=== PATIENT | female | born 1995 | race Caucasian/White ===

== ENCOUNTER 2017-06-04 16:15 | Emergency (ER) | payer MEDICAID ==
[~2017-06-04] VITALS: Ht 157.5 cm; Wt 48.5 kg
--- NOTE | ~2017-06-04 | CT99 ---
[facility] A Service of [facility] & [facility] RADIOLOGY TEXT RESULTS PATIENT: CHIDI MORALES LOCATION: [facility] : [birth year] UNIT #: [id number] AGE: [address]: Yamilet Lara MD SEX: F ORDER DR: [id number] [facility] [address] [place], [place] [address] [id number] MR#: [id number] Acc #: [id number] NAME: CHIDI MORALES. : 1995 SEX: F STUDY DATE/TIME: 06/04/2017 19:51 UNIT: [facility] ROOM: STUDY DESCRIPTION: CT Maxillofacial Area W Cont Attending Physician: Yamilet Lara M.D. Ordering Physician: Yamilet Lara M.D. Primary Care Physician: Chance Toney Aprn MEDICAL IMAGING REPORT This report is preliminary unless electronic signature is present EXAM CT maxillofacial area with contrast HISTORY Facial swelling more to the left side for three days, worsening, with nausea, vomiting and dizziness. Depression, anxiety and pain. COMMENT CT of the face performed in the axial plane during the intravenous administration of 100 mL Isovue-370. This CT exam was performed with one or more of the following radiation dose reduction techniques: automatic exposure control, adjustment of mA and/or kV according to patient size, and iterative reconstruction. This was followed by sagittal and coronal reformatted images. COMPARISON No comparison. FINDINGS There is partial opacification of left anterior ethmoid air cells and a small mucus retention cyst or polyp in a left sphenoid sinus, but there is no sinus air fluid level and the mastoid air cells are clear. There is dental metal and this results in some streak artifact. There is a sclerotic lesion seen associated with the root of right premolar tooth. It is about a centimeter in dimension and could be a dental associated lesion such as a cemento-ossifying fibroma or cementoma or other odontogenic lesion. I would recommend referral to Oral Maxillofacial Surgery for further evaluation. It has a particularly sclerotic central portion. There is some focal soft tissue swelling along the left side bridge of the nose, which has a small amount of heterogeneous low attenuation with a STS. [facility] A Service of [facility] RADIOLOGY TEXT RESULTS PATIENT: CHIDI MORALES LOCATION: [facility] : [birth year] UNIT #: [id number] AGE: [address]: Yamilet Lara MD SEX: F ORDER DR: central higher attenuation area. This measures up to about 7 mm in dimension and could be site of infection. Please correlate for clinical evidence of a skin lesion versus some cellulitic change. No trauma history is provided. There is no adjacent fracture. The globes are intact. The lenses are located. The patient has some asymmetric soft tissue swelling in the left cheek, again, possibly some cellulitic change in the absence of trauma history. There is no retrobulbar pathology appreciated. Some prominent submandibular nodes are seen left greater than right. They are probably reactive, but follow up is recommended to ensure that they resolve clinically. No bone destruction is appreciated. There is also a lucent area, which is probably fluid adjacent to the left anterior paramedian maxilla. It is about 1.4 x 0.7 x 1.4 cm dimension and it is concerning for a small abscess. I believe there is some overlying soft tissue swelling, but please correlate with physical exam findings. In this location it is typically dental in origin. It is in close proximity to the root of the midline left maxillary incisor tooth and it is possible that this is a source of infection with some at least thinning of the overlying cortex. I would recommend dental evaluation. IMPRESSION 1. There is concern for a rim-enhancing fluid collection seen left paramedian anterior to the maxilla, which measures about 1.4 x 0.7 x 1.4 cm dimension. It is intimately associated with the root of the midline left maxillary incisor tooth and it could be a dental abscess, which is involving the soft tissue. There does appear to be some soft tissue swelling and stranding and please correlate for clinical evidence for cellulitis in the region of abscess formation. Correlation with dental evaluation is recommended. Additionally, there is a smaller probable abscess along the left side bridge of the nose closer to the medial orbit that is about 7 mm in largest dimension, but I believe there is also cellulitic change in the left cheek. There is soft tissue stranding in this location with some swelling and no trauma history. Please correlate with findings on physical exam. 2. There is a sclerotic lesion associated with right maxillary premolar tooth up to about a centimeter dimension, which is nonspecific and in the differential would be an odontogenic lesion such as lesion such as a cemento-ossifying fibroma or cementoma. This area should also be evaluated by dental/oral maxillofacial surgery. This is probably unrelated to the current presentation of left-sided facial swelling. STAT * RESULT [facility]. [facility] A Service of [facility] & [facility] RADIOLOGY TEXT RESULTS PATIENT: CHIDI MORALES LOCATION: [facility] #: [id number] : [birth year] UNIT #: [id number] AGE: [address]: Yamilet Lara MD SEX: F ORDER DR: Dictated by... Stacy Hays M.D. THIS IS AN ELECTRONICALLY VERIFIED REPORT Stacy Hays M.D. at 06/05/2017 10:56 AM SAC/to TD: 06/04/2017 21:13 JOB #: [id number] MEDICAL IMAGING REPORT Page 1 of 1 COPY
[~2017-06-04 16:15] MED LIST: ADVAIR 100-501 EACH IH; ALBUTEROL17 GM INH; FLEXERIL10 MG PO; MOTRIN600 M1 PO; NAPROSYN500 MG PO; NO MEDICATIONS; SEROQUEL PO; SINGULAIR PO; TENEX1 MG; ZYRTEC-D TABLE1 EACH PO
[2017-06-04 16:35] LABS: URINE SOURCE CLEAN CATCH
[2017-06-04 16:40] LABS: BASOPHIL% 0.3 % (0-2.5); EOSINOPHIL# 0.1 X10e3 (0-0.7); EOSINOPHIL% 0.8 % (0.0-7.0); HEMATOCRIT 43.2 % (35.0-45.0); HEMOGLOBIN 15.1 gm/dL (12.0-16.0); LYMPHOCYTE# 1.3 X10e3 (1.0-3.5); LYMPHOCYTE% 15.3 % (17.0-45.0); MEAN CELL VOLUME 82.6 FL (83-96); MEAN CORPUSCULAR HEMOGLOBIN 28.8 PG (28-34); MEAN CORPUSCULAR HGB CONC 34.9 g/dL (30-36); MEAN PLATELET VOLUME 8.6 FL (6.5-11.5); MONOCYTE# 0.5 X10e3 (0-1.0); MONOCYTE% 5.4 % (3.0-12.0); NEUTROPHIL# 6.7 X10e3 (1.5-7.1); NEUTROPHIL% 78.2 % (40-75); PLATELET COUNT 201 X10e3 (140-420); RED BLOOD COUNT 5.23 X10e (3.90-5.30); RED CELL DISTRIBUTION WIDTH 14.8 % (11.0-15.5); WHITE BLOOD COUNT 8.6 X10e3 (4.0-10.5)
[2017-06-04 16:42] LABS: DIFF IND NO
[2017-06-04 16:45] LABS: URINE APPEARANCE TURBID; URINE BILIRUBIN NEG (NEG); URINE BLOOD 3+ (NEG); URINE COLOR DK YELLOW; URINE GLUCOSE NEG (NEG); URINE KETONE 3+ (NEG); URINE LEUKOCYTE ESTERASE 1+ (NEG); URINE NITRATE NEG (NEG); URINE PH 5.5 (5-8); URINE PROTEIN 2+ (NEG); URINE SPECIFIC GRAVITY 1.038 (1.003-1.035)
[2017-06-04 16:47] LABS: CULTURE INDICATED? YES; URINE BACTERIA AUWI 3+ (NEGATIVE); URINE SQUAMOUS EPITHELIAL CELL MANY /[HPF]; UWBCS1 AUWI 25-50 (0-5)
[2017-06-04 17:07] LABS: ALBUMIN SERUM 4.4 g/dL (3.5-5.0); BILIRUBIN, DIRECT 0.1 mg/dL (0.0-0.2); BILIRUBIN,INDIRECT 0.5 mg/dL (0.0-0.9); BILIRUBIN,TOTAL 0.6 mg/dL (0.2-2.0); BUN/CREATININE RATIO 15.71; CALCIUM SERUM 9.1 mg/dL (8.4-10.2); CREATININE SERUM 0.7 mg/dL (0.6-1.4); GLOM FILT RATE Estimated 124.7 mL/min (>60); POTASSIUM 3.4 mmol/L (3.5-5.1); PROTEIN TOTAL SERUM 7.6 g/dL (6.0-8.3)
== END 2017-06-05 00:09 | disposition hospice, home (50) ==
LOC: CED 16:15
PROVIDERS: Emergency Medicine
DX: L03.211 Cellulitis of face (principal); L02.01 Cutaneous abscess of face
CPT/HCPCS: 36415; 70487; 80048; 80076; 81003; 83690; 84703; 85025; 87086; 96365; 96375; 99285; J0295; J1885; J2270; J2405; Q9967